=== PATIENT | male | born 1935 | race Caucasian/White ===

== ENCOUNTER 2017-01-07 02:15 | Inpatient (IN) ==
[2017-01-07] MEDS ORDERED: PANTOPRAZOLE 40 MG VIAL IV STA (02:29)
[2017-01-07] MEDS ORDERED: METOCLOPRAMIDE 10 MG/2 ML VIAL IV STA (02:30)
--- NOTE | 2017-01-07 02:34 | Emergency Department Note ---
Arrival - Arrival Chief Complaint: GI Bleed/Rectal ED Nursing Triage Note: Pt arrives from [facility] for further eval of a lower Gi Bleed. Pt was seen initially for a fall and found to have low h&h and + hemmacult. Pt denies having blood in stool but is noted to have dementia. Denies any pain at time of triage. Mode of Arrival: Stretcher Limitations: Altered Mental Status Source: Old Records Reviewed Time Seen by Provider: 01/07/17 02:29 - History of Present Illness HPI Narrative: This 81-year-old white male presents on referral from [place] where he initially presented with multiple abrasions sustained in a fall when he wandered off from his home earlier this evening. The patient has severe dementia and had escaped briefly from his 's line of sight. Subsequent workup apparently revealed patient to be anemic with Hemoccult positive stool. Because of his dementia any cognizant history is unreliable although the patient states he has had explosive diarrhea for several days with abdominal pain that he can poorly described. He currently is oriented only to person and exhibits extreme tangential speech. Currently he appears in no acute medical distress. Of note , the patient was just discharged from [facility] 48 hours ago. Onset (ago): unknown Allergies/Adverse Reactions: Allergies Allergy/AdvReac Type Severity Reaction Status Date / Time No Known Allergies Allergy Verified 12/24/16 17:52 Home Medications: Home Medications Medication Instructions Recorded Confirmed Type Nortriptyline HCl 10 mg PO BEDTIME 10/27/16 01/07/17 History Zaleplon [Sonata] 5 mg PO BEDTIME PRN #30 capsule 11/07/16 01/07/17 Rx Donepezil [Aricept] 10 mg PO BEDTIME #30 tablet 01/05/17 01/07/17 Rx Gabapentin Cap/Tab [Neurontin 100 mg PO TID #90 capsule 01/05/17 01/07/17 Rx Cap/Tab] Levothyroxine Tab [Synthroid Tab] 50 mcg PO DAILY@0700 #30 tablet 01/05/1701/07 Rx Memantine HCl/Donepezil HCl 1 capsule PO BEDTIME #30 01/05/17 01/07/17 Rx [Namzaric 28-10 mg] OLANZapine TAB [ZyPREXA Tab] 2.5 mg PO BID@1600,2100 #60 tablet 01/05/17 Rx Rivaroxaban [Xarelto] 20 mg PO DAILY W/SUPPER #30 tablet 01/05/17 01/07/17 Rx Review of System - Review of System ROS unobtainable: due to mental status Medical,Surgical,& Family Hx - Medical History Cardio: History of: Cardiac Dysrhythmia, Pacemaker Psychological: History of: Anxiety Disorders, Depression No history of: Behavior Problems, Previous Suicide Attempt, Violent Behavior , Psychiatric Problems Neurology: History of: Dementia HEENT: History of: Eye Problem (cataracts) Endocrine: History of: Diabetes Mellitus (NIDDM) Respiratory: History of: Respiratory Problems (SINUS;RUNNY NOSE.) Renal: History of: Renal Problems (URINARY FREQUENCY.) Gastrointestinal: History of: Diverticulitis/ Diverticulosis, Polyps, GI Problems (rectal bleeding) Musculoskeletal: History of: Back/Neck Problems (STATES HAS BACK PAIN. STATED HAD FALL SEVERAL MONTHS AGO.), Musculoskeletal Problems (GAIT VERY UNSTEADY BUT DO NOT USE ANY EQUIPMENT TO AMBULATE.) Hematology: History of: Anemia Other: History of: Skin Problems (DRY SKIN.) - Surgical History Cardiac Surgeries: Sugical HX of: Cardiac Catheterization, Cardiac Surgery ( Pacemaker) Thoracic Surgeries: Patient denies;: Organ Transplant, Lobectomy Neurologic Surgeries: Patient denies: Neurologic Surgery HEENT Surgeries: Surgical HX of: Eye Surgery (Cataracts, bilateral) Abdominal Surgeries: Surgical HX of: Abdominal Surgery, Colonoscopy Reproductive Surgeries: Patient denies;: Genitourinary Surgery Orthopedic Surgeries: Surgical HX of;: Total Knee Replacement (Right Knee) - Family History Family History: Reports;: Family Diabetes, Family Psychiatric Problems (SISTER) - Social History Smoking Status: Never smoker Frequency of Alcohol Use: None Type of Drug Use: None Exam Physical Examination: GENERAL: Well developed, well nourished elderly white male in no acute distress. HEENT: Normocephalic. Small abrasions of the middle of the forehead and nose noted. Moist mucous membranes. EOMI. PERRLA. ENT NML NECK: Supple. No adenopathy. CARDIAC: Regular. No murmurs. Heart rate 110 CHEST: Clear to auscultation. No respiratory distress. O2 sat 100%. Pacemaker noted ABDOMEN: Soft. Nontender. Active bowel sounds. EXTREMITIES: No trauma. Normal ROM. No pedal edema. SKIN: No diaphoresis. No rash. Bilateral small knee abrasions. NEURO: Alert. Oriented to person only. Motor, sensory, vibratory intact. No focal deficits. Vital Signs: Vital Signs Temperature 97.8 F 01/07/17 02:15 Pulse Rate 112 H 01/07/17 02:15 Respiratory Rate 18 01/07/17 02:15 Blood Pressure 108/97 01/07/17 02:15 O2 Sat by Pulse Oximetry 112 H 01/07/17 02:15 Course - Reevaluation(s) Reevaluation #1: Patient is oblivious to the situation. - Consultations Consultation #1: Discussed with hospitalist service who will admit for further evaluation and treatment Results - Labs Labs: Lab per mother reveals white blood count 9700, hematocrit 27.7, sodium 140, potassium 3.9, creatinine 1.6, BUN 31, occult blood positive, urinalysis negative. - Diagnostic Findings Procedure: Chest x-ray: image reviewed by me, report reviewed by me (Pacemaker left chest otherwise negative chest x-ray), CT: image reviewed by me, report reviewed by me (Head per Rodarte no acute injury. Microvascular ischemia and cerebral atrophy noted.) Disposition Clinical Impression: Gastrointestinal hemorrhage, Cardiac pacemaker, Status post right knee replacement Disposition: Still a Patient Time of Disposition: 02:46
[2017-01-07] MEDS ORDERED: PANTOPRAZOLE 40 MG VIAL IV ONE (02:45)
[2017-01-07] MEDS ORDERED: METOCLOPRAMIDE 10 MG/2 ML VIAL ONE (02:45)
[2017-01-07] MEDS ORDERED: ONDANSETRON 4 MG/2 ML VIAL IV PRN (02:58)
[2017-01-07] MEDS ORDERED: ZALEPLON 5 MG CAPSULE PO PRN (03:02)
[2017-01-07 03:11] LABS: Basophils # 0.1 10*3/uL (0.0-0.2); Basophils % 0.6 % (0.0-0.8); Eosinophils # 0.1 10*3/uL (0.0-0.87); Hematocrit 28.5 VOL% (42.0-52.0); Hemoglobin 9.5 GM/DL (14.0-18.0); Immature Granulocytes % 0.5 %; Immature Granulocytes Absolute 0.05 #; Lymphocytes # 1.6 10*3/uL (1.4-4.0); Lymphocytes % 16.6 % (21.2-54.2); Mean Corpuscular HGB Conc 33.3 GM/DL (32-36); Mean Corpuscular Hemoglobin 30 PG (27-34); Mean Corpuscular Volume 89.1 FL (87-102); Mean Platelet Volume 10.3 FL (9.6-12.0); Monocytes # 0.8 10*3/uL (0.11-0.8); Monocytes % 8.2 % (1.7-12.7); Neutrophils # 7.1 10*3/uL (1.4-7.4); Neutrophils % 73.1 % (38.7-73.9); Platelet Count 184 T/CUMM (130-400); Red Cell Distribution Width 14.2 % (9.3-17.3); White Blood Count 9.7 T/CUMM (4-12)
[2017-01-07 03:25] LABS: INR 1.1; PT Patient Result 11.5 SECS; Partial Thromboplastin Time 28.5 SECS (0-40)
[2017-01-07 03:36] LABS: Troponin I Only 0.016 NG/ML (0.00-0.045)
[2017-01-07] MEDS: LEVOTHYROXINE 50 MCG TABLET PO SCH (06:19)
--- NOTE | 2017-01-07 06:32 | EKG Report ---
Stationary ECG Study 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
--- NOTE | 2017-01-07 06:49 | XRay Report ---
XR chest 1V portable Indication: SOB Comparison: Chest x-ray dated July 14, 2016 Technique: Single frontal view of the chest Findings: Cardiac mediastinal silhouette is stable in configuration. Cardiac pacemaker apparatus again noted. Chronic change of the lungs including bibasilar and biapical scarring without focal consolidation, pleural effusion, or pneumothorax. Granulomatous calcifications suggested within the left upper lung. Osseous and surrounding soft tissue structures appear grossly unchanged. IMPRESSION: Stable chest x-ray. PROCEDURE INTERPRETED AT [facility] DEPARTMENT OF RADIOLOGY Final Report Signed by: Dr Liang Jama
[2017-01-07] MEDS: GABAPENTIN 100 MG CAPSULE PO SCH ×3 (08:46→21:56)
[2017-01-07] MEDS: PANTOPRAZOLE 40 MG VIAL IV SCH ×2 (08:46→21:56)
[2017-01-07] MEDS: MEMANTINE 10 MG TABLET PO SCH ×2 (08:46→21:56)
[2017-01-07] MEDS: DILTIAZEM CD 240 MG CAPSULE PO SCH (08:46)
[2017-01-07 09:03] LABS: Osmolality,Calculated 291.8 MOS/KG (273-304)
--- NOTE | 2017-01-07 09:36 | Gastrointestinal Consult Note ---
<Chiquita Villeda - Last Filed: 01/07/17 09:28> Assessment and Plan (1) Heme positive stool Status: Acute Assessment and plan: 01/07-Findings of anemia/melena following fall at home with history of Xarelto use for atrial fibrillation. Hgb 9.5 with baseline noted around 10.3. Continue to monitor HH and transfuse as necessary. Plan for tentative diagnositc EGD tomorrow. Plan and addendum to follow by Dr Preciado. Current Visit: No History of Present Illness Chief complaint: Melena History of present illness: Mr. Gusman is a 81 year old male who presented to the hospital following a fall at home. Pt has severe dementia and cannot provide any history. His is present during visit and is able to provide some information however her recall is limited at this time. Apparently pt was discharged from [facility] on 01/05 and returned home with his who stays with him 23/03. She states yesterday evening she walked out of the room for a minute and when she returned he had wandered off which she states he will do if not constantly supervised. She could not locate him and got in the car to drive the block and see if she could find him. When she returned home there were emergency personnel at her neighbors house due to her had entered their back yard and fell. He was brought in for further evaluation. Upon admission, pt was found to be anemic with heme positive stools. Pt states that she noticed when he got home yesterday he had a black tarry stool that she states she had to help him have with manual disimpaction. She denies him having any reports of pain, nausea, vomiting. Denies any known history of PUD in the past. Denies any weight loss, fever or chills. Pt hemoglobin on admission was noted at 9.5. He is noted on 12/31 to have a hemoglobin of 10.3. He has been seen by Dr Preciado in the past for weight loss however no endoscopy records noted. Pt cannot recall his previous endoscopy at this time. She cannot recall his history of blood transfusion/anemia in the past. He does take Xarelto for history of atrial fibrillation. Home Medications Medication Instructions Recorded Confirmed Type Nortriptyline HCl 10 mg PO BEDTIME 10/27/16 01/07/17 History Zaleplon [Sonata] 5 mg PO BEDTIME PRN #30 capsule 11/07/16 01/07/17 Rx Donepezil [Aricept] 10 mg PO BEDTIME #30 tablet 01/05/17 01/07/17 Rx Gabapentin Cap/Tab [Neurontin 100 mg PO TID #90 capsule 01/05/17 01/07/17 Rx Cap/Tab] Levothyroxine Tab [Synthroid Tab] 50 mcg PO DAILY@0700 #30 tablet 01/05/1701/07 Rx Memantine HCl/Donepezil HCl 1 capsule PO BEDTIME #30 01/05/17 01/07/17 Rx [Namzaric 28-10 mg] OLANZapine TAB [ZyPREXA Tab] 2.5 mg PO BID@1600,2100 #60 tablet 01/05/17 Rx Rivaroxaban [Xarelto] 20 mg PO DAILY W/SUPPER #30 tablet 01/05/17 01/07/17 Rx Allergies Allergy/AdvReac Type Severity Reaction Status Date / Time No Known Allergies Allergy Verified 12/24/16 17:52 Medical,Surgical,& Family Hx - Medical History Cardio: History of: Cardiac Dysrhythmia, Pacemaker Psychological: History of: Anxiety Disorders, Depression No history of: Behavior Problems, Previous Suicide Attempt, Violent Behavior , Psychiatric Problems Neurology: History of: Dementia HEENT: History of: Eye Problem (cataracts) Endocrine: History of: Diabetes Mellitus (NIDDM) Respiratory: History of: Respiratory Problems (SINUS;RUNNY NOSE.) Renal: History of: Renal Problems (URINARY FREQUENCY.) Gastrointestinal: History of: Diverticulitis/ Diverticulosis, Polyps, GI Problems (rectal bleeding) Musculoskeletal: History of: Back/Neck Problems (STATES HAS BACK PAIN. STATED HAD FALL SEVERAL MONTHS AGO.), Musculoskeletal Problems (GAIT VERY UNSTEADY BUT DO NOT USE ANY EQUIPMENT TO AMBULATE.) Hematology: History of: Anemia Other: History of: Skin Problems (DRY SKIN.) - Surgical History Cardiac Surgeries: Sugical HX of: Cardiac Catheterization, Cardiac Surgery ( Pacemaker) Thoracic Surgeries: Patient denies;: Organ Transplant, Lobectomy Neurologic Surgeries: Patient denies: Neurologic Surgery HEENT Surgeries: Surgical HX of: Eye Surgery (Cataracts, bilateral) Abdominal Surgeries: Surgical HX of: Abdominal Surgery, Colonoscopy Reproductive Surgeries: Patient denies;: Genitourinary Surgery Orthopedic Surgeries: Surgical HX of;: Total Knee Replacement (Right Knee) - Family History Family History: Reports;: Family Diabetes, Family Psychiatric Problems (SISTER) - Social History Smoking Status: Never smoker Frequency of Alcohol Use: None Type of Drug Use: None ROS unobtainable: due to mental status Exam - Constitutional Vitals: Period Temp Pulse Resp BP Sys/Guzman Pulse Ox Last 24 Hr 97.3 F-98.8 F 70-149 14-34 70-147/40-88 93-100 General appearance: normal weight, no acute distress - Head Head exam: Present: normal inspection, normocephalic - Eye Eye exam: Present: other (lids and conjunctiva unremarkable). Absent: scleral icterus - ENT ENT exam: Present: normal exam, normal oropharynx - Neck Neck exam: Present: normal inspection - Respiratory Respiratory exam: Present: clear to auscultation bilaterally. Absent: rales, rhonchi, wheezes - Cardiovascular Cardiovascular exam: Present: regular rate and rhythm. Absent: diastolic murmur , JVD, systolic murmur - GI/Abdominal GI/Abdominal exam: Present: normal bowel sounds, soft. Absent: ascites, distended, mass, organomegaly, tenderness - Extremities Exam Extremities exam: Present: normal inspection, full ROM - Back Exam Back exam: Present: normal inspection - Neurological Exam Neurological exam: Present: alert, altered - Psychiatric Psychiatric exam: Present: other - Skin Skin exam: Present: normal color, warm, abrasion (forehead), dry, other ( ecchymosis to forehead) Results - Labs CBC & BMP: 01/07/17 03:00 01/07/17 08:30 Lab Results: I have reviewed the past 24 hour labs <James Preciado - Last Filed: 01/07/17 17:52> History of Present Illness History of present illness: Mr. Gusman is a 81 year old male Exam - Constitutional Vitals: Period Temp Pulse Resp BP Sys/Guzman Pulse Ox Last 24 Hr 97.3 F-99 F 66-149 13-34 70-147/40-88 93-100 Results - Labs CBC & BMP: 01/07/17 08:30 01/07/17 08:30
[2017-01-07 09:37] LABS: Hematocrit 28.9 VOL% (42.0-52.0); Hemoglobin 9.6 GM/DL (14.0-18.0)
--- NOTE | 2017-01-07 14:46 | Hospitalist Progress Note ---
Assessment and Plan (1) Lower GI bleed Status: Acute Assessment and plan: cont protonix, monitor hgb, transfuse for hgb less than 8, hold xarelto Current Visit: No (2) Atrial fibrillation Status: Acute Assessment and plan: rate controlled with po dilt given this morning, hold xarelto due to bleeding Current Visit: No (3) Diabetes Status: Acute Assessment and plan: hemoglobin A1c, ISC Current Visit: No (4) Major neurocognitive disorder, due to Alzheimer's disease, with behavioral disturbance, mild Status: Acute Assessment and plan: Continue Zyprexa, Aricept, Namenda Current Visit: No (5) Anemia Status: Acute Assessment and plan: Monitor hemoglobin and transfuse for hemoglobin less than 8. Possible EGD in a.m. Current Visit: No Hospitalist: Subjective Interval history: Discharged from [facility] recently, wondering off to neighbors yard and falling. Patient has severe to dementia but very pleasant. Patient does not report any bloody stools, but his reports dark tarry stools. Patient on xarelto for atrial fibrillation which now on hold. Has afib with RVR now controlled on po dilt. Moving out of ICU. Exam - Constitutional Vitals: Period Temp Pulse Resp BP Sys/Guzman Pulse Ox Last 24 Hr 97.3 F-99 F 66-149 13-34 70-147/40-88 93-100 Exam: Heart Rate-[IRR and tachy ] Lungs-[clear ] GI-[+bs soft, NT] Ext-[no edema] Neuro [Motor 5/5], [alert and oriented times 1] psych [pleasant mood and affect] General [no acute distress] Results - Labs CBC & BMP: 01/07/17 08:30 01/07/17 08:30 Lab Results: I have reviewed the past 24 hour labs - Diagnostic Findings Procedure: Chest x-ray: report reviewed by me (Rowdy philip)
[2017-01-07] MEDS ORDERED: GLUCAGON 1 MG VIAL IM PRN (15:01)
[2017-01-07] MEDS ORDERED: DEXTROSE 50% 25 GM/50 ML VIAL IV PRN (15:01)
[2017-01-07] MEDS: OLANZapine 5 MG TABLET PO SCH ×2 (17:41→21:55)
[2017-01-07] MEDS: INSULIN LISPRO 100 UNIT/ML SUBCUT SCH ×2 (17:42→21:57)
[2017-01-07 18:15] LABS: Hematocrit 29.2 VOL% (42.0-52.0); Hemoglobin 9.8 GM/DL (14.0-18.0)
[2017-01-07] MEDS: DONEPEZIL 10 MG TABLET PO SCH (21:56)
[2017-01-07] MEDS: NORTRIPTYLINE 10 MG CAPSULE PO SCH (21:56)
[2017-01-08 02:39] LABS: Hematocrit 26.9 VOL% (42.0-52.0); Hemoglobin 8.8 GM/DL (14.0-18.0)
[2017-01-08] MEDS: LEVOTHYROXINE 50 MCG TABLET PO SCH (06:25)
[2017-01-08] MEDS: PANTOPRAZOLE 40 MG VIAL IV SCH ×2 (08:17→22:46)
[2017-01-08] MEDS: GABAPENTIN 100 MG CAPSULE PO SCH ×3 (09:00→22:47)
[2017-01-08] MEDS: INSULIN LISPRO 100 UNIT/ML SUBCUT SCH ×4 (09:24→22:50)
--- NOTE | 2017-01-08 10:43 | History and Physical Update ---
History and Physical Update - Physical Exam Mental Status: other (Dementia) Heart: regular rate and rhythm Lung: clear to auscultation Abdomen: within normal limits Vitals: within normal limits
--- NOTE | 2017-01-08 10:48 | Physician Query Form ---
CLICK EDIT DOCUMENT TO SELECT QUERY ANSWER --> OK --> SIGN Anabelle Gutierrez RN [facility] [employer] W) [phone] (f) [phone] [email or web address] [email or web address]: Make your selection(s) from the choices in EACH section by typing an "x" and enter comments in the comment section. Please use your independent medical judgment in providing your response. This request does not imply that any particular answer is desired or expected. CLINICAL INDICATORS: (Providers should not edit this section) Based on documentation of "Acute anemia" "Acute lower GI hemorrhage" "Heme positive stools" Monitored with serial HH lab checks. Scheduled for EGD. Based on the above, could you clarify which of the following conditions you are evaluating, treating, and/or monitoring? ( x) Blood loss anemia ( x) acute ( ) chronic ( ) acute on chronic ( ) Acute blood loss anemia on baseline chronic anemia ( ) Acute blood loss anemia as a complication of a procedure ( ) Iron deficiency anemia not associated with blood loss ( ) Dilutional anemia due to IV fluids ( ) Hemolytic anemia ( ) immune ( ) non-immune - please specify cause: ( ) Anemia due to other condition, please specify: ( ) Clinically unable to determine COMMENTS: Use of terms such as suspected, likely, or probable (associated with a specific diagnosis that is being evaluated, monitored, or treated as if it exists) are acceptable and can be restated in the discharge summary if not ruled out. MTDD
--- NOTE | 2017-01-08 10:57 | Anesthesia Post-Op ---
Anesthesia Post OP - Post Ansesthetic Evaluation Patient seen in post op: Yes Resp: within normal limits CV: within normal limits Mental: within normal limits Temp: within normal limits [id number]-[id number]: within normal limits Nausea and Vomiting: within normal limits Pain: within normal limits
[2017-01-08] MEDS ORDERED: TUBERCULIN SKIN TEST 0.1 ML SYRINGE INTRADERM ONE (11:00)
--- NOTE | 2017-01-08 11:00 | Operative Note ---
Date of procedure: 01/08/17 Pre-op diagnosis: Melena on chronic anticoagulation Procedure: EGD 81-year-old gentleman with GI blood loss felt to be melenic now for upper endoscopy. He is on Brilinta for atrial fibrillation. Informed consent was obtained He was sedated with MAC anesthesia per anesthesia protocol. Patient placed in left lateral decubitus position the Olympus flexible video upper endoscope is her lower cavity under direct vision the esophagus intubated findings: Esophagus-normal proximal mid esophageal mucosa distal esophagus with moderate hiatal hernia. Distal esophageal stricture is present with no significant esophagitis. Stomach-normal insufflation normal mucosa to direct and retroflexed views of the body, fundus, cardia and antrum the stomach. Pylorus-normal Duodenum-normal for the bulb duodenum to the third portion of the duodenum. No angiodysplasia or active bleeding source was identified. The procedure terminated placed our procedure well his discharge recovery in good condition. Postop diagnosis: 1. Gastroesophageal reflux disease-continue PPI treatment 2. Esophageal stricture dilatation as needed for dysphagia complaints 3. Continue to monitor for signs of active bleeding. Would recommend discontinuation of chronic anticoagulation given his propensity to falls. I would not recommend colonoscopy unless evidence of ongoing active bleeding recurs given the patient's age and his dementia he is a poor operative risk. Anesthesia: MAC Surgeon / Physician: James Preciado Estimated blood loss: none Specimens: none sent Condition: stable Disposition: post procedure unit Results - Labs CBC & BMP: 01/08/17 02:15 01/07/17 08:30 Discharge Plan - Discharge Medications No Action Nortriptyline HCl 10 mg PO BEDTIME Gabapentin Cap/Tab [Neurontin Cap/Tab] 100 mg PO TID #90 capsule Levothyroxine Tab [Synthroid Tab] 50 mcg PO DAILY@0700 #30 tablet OLANZapine TAB [ZyPREXA Tab] 2.5 mg PO BID@1600,2100 #60 tablet Memantine HCl/Donepezil HCl [Namzaric 28-10 mg] 1 capsule PO BEDTIME #30 Zaleplon [Sonata] 5 mg PO BEDTIME PRN #30 capsule PRN Reason: Sleep Donepezil [Aricept] 10 mg PO BEDTIME #30 tablet Rivaroxaban [Xarelto] 20 mg PO DAILY W/SUPPER #30 tablet - Follow Up or Referral - Forms/Instructions
--- NOTE | 2017-01-08 13:31 | Hospitalist Progress Note ---
Assessment and Plan (1) Lower GI bleed Status: Acute Assessment and plan: cont protonix, hgb stable, status post EGD shows GERD, esophageal stricture but no active bleeding Current Visit: No (2) Atrial fibrillation Status: Acute Assessment and plan: Continue po dilt, would not resume Xarelto due to falls and high risk for rebleed Current Visit: No (3) Diabetes Status: Acute Assessment and plan: hemoglobin A1c 6.7, ISC Current Visit: No (4) Major neurocognitive disorder, due to Alzheimer's disease, with behavioral disturbance, mild Status: Acute Assessment and plan: Continue Zyprexa, Aricept, Namenda Current Visit: No (5) Anemia Status: Acute Assessment and plan: Due to Xarelto. Continue to monitor hemoglobin. No blood transfusion required at this point. EGD unremarkable do not plan on doing colonoscopy Current Visit: No Hospitalist: Subjective Interval history: Had conversation with David from case management. [facility] has requested patient to be placed in a detention. We have spoke with his today. She says his daughter is the one initiating office. She will look at several nursing homes in her area. Patient pleasantly confused today. Exam - Constitutional Vitals: Period Temp Pulse Resp BP Sys/Guzman Pulse Ox Last 24 Hr 97.8 F-98.6 F 66-96 13-22 107-133/51-89 94-100 Exam: Heart Rate-[IRR] Lungs-[clear ] GI-[+bs soft, NT] Ext-[no edema] Neuro [Motor 5/5], [pleasantly confused psych [pleasant mood and affect] General [no acute distress] Results - Labs CBC & BMP: 01/08/17 02:15 01/07/17 08:30 Lab Results: I have reviewed the past 24 hour labs
[2017-01-08] MEDS: MEMANTINE 10 MG TABLET PO SCH ×2 (15:35→22:46)
[2017-01-08] MEDS: DILTIAZEM CD 240 MG CAPSULE PO SCH (15:36)
[2017-01-08] MEDS: OLANZapine 5 MG TABLET PO SCH ×2 (15:39→22:46)
[2017-01-08] MEDS: NORTRIPTYLINE 10 MG CAPSULE PO SCH (22:46)
[2017-01-08] MEDS: DONEPEZIL 10 MG TABLET PO SCH (22:47)
[2017-01-09 05:04] LABS: Basophils # 0.1 10*3/uL (0.0-0.2); Eosinophils # 0.3 10*3/uL (0.0-0.87); Eosinophils % 3.9 % (0.00-10.9); Hematocrit 28.8 VOL% (42.0-52.0); Hemoglobin 9.4 GM/DL (14.0-18.0); Immature Granulocytes % 0.2 %; Immature Granulocytes Absolute 0.02 #; Lymphocytes # 1.8 10*3/uL (1.4-4.0); Lymphocytes % 21.3 % (21.2-54.2); Mean Corpuscular HGB Conc 32.6 GM/DL (32-36); Mean Corpuscular Hemoglobin 29 PG (27-34); Mean Corpuscular Volume 88.6 FL (87-102); Mean Platelet Volume 10.3 FL (9.6-12.0); Monocytes # 0.6 10*3/uL (0.11-0.8); Monocytes % 7.7 % (1.7-12.7); Neutrophils # 5.4 10*3/uL (1.4-7.4); Neutrophils % 65.9 % (38.7-73.9); Platelet Count 193 T/CUMM (130-400); Red Blood Count 3.25 MC/CUMM (3.8-5.5); Red Cell Distribution Width 14.2 % (9.3-17.3); White Blood Count 8.2 T/CUMM (4-12)
[2017-01-09] MEDS: LEVOTHYROXINE 50 MCG TABLET PO SCH (06:40)
[2017-01-09] MEDS: MEMANTINE 10 MG TABLET PO SCH ×2 (09:45→21:01)
[2017-01-09] MEDS: DILTIAZEM CD 240 MG CAPSULE PO SCH (09:45)
[2017-01-09] MEDS: GABAPENTIN 100 MG CAPSULE PO SCH ×3 (09:45→21:00)
[2017-01-09] MEDS: INSULIN LISPRO 100 UNIT/ML SUBCUT SCH ×4 (09:46→21:01)
[2017-01-09] MEDS: PANTOPRAZOLE 40 MG VIAL IV SCH ×2 (09:47→21:01)
--- NOTE | 2017-01-09 11:01 | Gastrointestinal Progress Note ---
<Chiquita Villeda - Last Filed: 01/09/17 10:59> Assessment and Plan (1) Heme positive stool Status: Acute Assessment and plan: 01/13-No reports of melena at present time. Hgb stable at 9.4. EGD findings noted. Plan and addendum to follow by Dr Preciado. 01/07-Findings of anemia/melena following fall at home with history of Xarelto use for atrial fibrillation. Hgb 9.5 with baseline noted around 10.3. Continue to monitor HH and transfuse as necessary. Plan for tentative diagnositc EGD tomorrow. Plan and addendum to follow by Dr Preciado. Current Visit: No Gastroenterology - PN: Subj Interval history: CC: MElena Pt is seen awake and alert in room. States he is feeling well today with no complaints of. Denies any abdominal pain. He has been tolerating his diet at present time. There are no reports of melena by nursing staff. Hemoglobin is stable at 9.4. EGD findings noted. Abdomen is soft, nontender. Family is reported to be discussing possible longterm placement at discharge. ROS: Denies SOB or chest pain Exam (Progress Note) - Constitutional Vitals: Period Temp Pulse Resp BP Sys/Guzman Pulse Ox Last 24 Hr 97.1 F-98.4 F 62-76 15-20 92-153/51-76 94-100 General appearance: normal weight, no acute distress - Head Head exam: Present: normal inspection, normocephalic - Eye Eye exam: Present: other (lids and conjunctiva unremarkable). Absent: scleral icterus - ENT ENT exam: Present: normal exam, normal oropharynx - Neck Neck exam: Present: normal inspection - Respiratory Respiratory exam: Present: clear to auscultation bilaterally. Absent: rales, rhonchi, wheezes - Cardiovascular Cardiovascular exam: Present: regular rate and rhythm. Absent: diastolic murmur , JVD, systolic murmur - GI/Abdominal GI/Abdominal exam: Present: normal bowel sounds, soft. Absent: ascites, distended, mass, organomegaly, tenderness - Extremities Exam Extremities exam: Present: normal inspection, full ROM - Back Exam Back exam: Present: normal inspection - Neurological Exam Neurological exam: Present: alert, oriented X3 - Psychiatric Psychiatric exam: Present: normal affect, normal mood - Skin Skin exam: Present: normal color, warm, dry Results - Labs CBC & BMP: 01/09/17 04:42 01/07/17 08:30 Lab Results: I have reviewed the past 24 hour labs <James Preciado - Last Filed: 01/09/17 13:58> Exam (Progress Note) - Constitutional Vitals: Period Temp Pulse Resp BP Sys/Guzman Pulse Ox Last 24 Hr 97.1 F-98.4 F 62-71 16-20 92-153/55-65 94-98 Results - Labs CBC & BMP: 01/09/17 04:42 01/07/17 08:30
--- NOTE | 2017-01-09 11:23 | Case Mgmt Physician Query Form ---
TB Signs and Symptoms Screening ([place]) INSTRUCTIONS: To be completed annually on residents/staff with a significant Tuberculin Skin Test (TST) upon admission/hire or a prior significant TST. To be completed on all staff at hire. Please respond to each listed symptom with an (X) in either the "YES" or "NO" box. Do you currently have any of the following symptoms: YES NO ( ) (x ) A cough If yes, is it: ( ) Productive ( ) Non- productive ( ) (x ) Hemoptysis (spitting up blood) ( ) (x ) Chest pains ( ) ( x) Weight Loss ( ) (x ) Fever ( ) ( x) Night Sweats (x ) ( ) Weakness ( ) (x ) Loss of Appetite ( ) (x ) Difficulty Breathing If you answered YES" to any of the above questions, how long have symptoms been present? Comments: If you have any questions, please contact me. thank you, David Swan RN Case Manager O:[phone] P: [phone] F: [phone] [email or web address]
--- NOTE | 2017-01-09 14:42 | Hospitalist Progress Note ---
Assessment and Plan (1) Lower GI bleed Status: Acute Assessment and plan: cont protonix, hgb stable, status post EGD normal Current Visit: No (2) Atrial fibrillation Status: Acute Assessment and plan: Continue po dilt, would not resume Xarelto due to falls and high risk for rebleed Current Visit: No (3) Diabetes Status: Acute Assessment and plan: hemoglobin A1c 6.7, ISC Current Visit: No (4) Major neurocognitive disorder, due to Alzheimer's disease, with behavioral disturbance, mild Status: Acute Assessment and plan: Continue Zyprexa, Aricept, Namenda Current Visit: No (5) Anemia Status: Acute Assessment and plan: Due to Xarelto. hgb stable Current Visit: No Hospitalist: Subjective Interval history: Patient hemoglobin is stable. Would normally discharge him home today. Week. Awaiting placement. Family is coming in from out of town to help care for him. [facility] wants him placed. is cooperating with this. Hopefully family will arrive so he can be discharged on Thursday. Exam - Constitutional Vitals: Period Temp Pulse Resp BP Sys/Guzman Pulse Ox Last 24 Hr 97.1 F-98.4 F 62-71 16-20 92-153/55-65 94-98 Exam: Heart Rate-[IRR] Lungs-[clear ] GI-[+bs soft, NT] Ext-[no edema] Neuro [Motor 5/5], [pleasantly confused psych [pleasant mood and affect] General [no acute distress] Results - Labs CBC & BMP: 01/09/17 04:42 01/07/17 08:30 Lab Results: I have reviewed the past 24 hour labs
[2017-01-09] MEDS: OLANZapine 5 MG TABLET PO SCH ×2 (17:02→21:02)
[2017-01-09] MEDS: NORTRIPTYLINE 10 MG CAPSULE PO SCH (21:00)
[2017-01-09] MEDS: DONEPEZIL 10 MG TABLET PO SCH (21:01)
[2017-01-10 04:45] LABS: Basophils # 0.1 10*3/uL (0.0-0.2); Basophils % 0.9 % (0.0-0.8); Eosinophils # 0.3 10*3/uL (0.0-0.87); Eosinophils % 4.5 % (0.00-10.9); Hematocrit 25.5 VOL% (42.0-52.0); Hemoglobin 8.4 GM/DL (14.0-18.0); Immature Granulocytes % 0.5 %; Immature Granulocytes Absolute 0.03 #; Lymphocytes # 1.5 10*3/uL (1.4-4.0); Lymphocytes % 22.8 % (21.2-54.2); Mean Corpuscular HGB Conc 32.9 GM/DL (32-36); Mean Corpuscular Hemoglobin 29 PG (27-34); Mean Corpuscular Volume 87.6 FL (87-102); Mean Platelet Volume 10.4 FL (9.6-12.0); Monocytes # 0.4 10*3/uL (0.11-0.8); Monocytes % 6.6 % (1.7-12.7); Neutrophils # 4.3 10*3/uL (1.4-7.4); Neutrophils % 64.7 % (38.7-73.9); Platelet Count 182 T/CUMM (130-400); Red Blood Count 2.91 MC/CUMM (3.8-5.5); Red Cell Distribution Width 14.1 % (9.3-17.3); White Blood Count 6.7 T/CUMM (4-12)
[2017-01-10] MEDS: LEVOTHYROXINE 50 MCG TABLET PO SCH (06:05)
[2017-01-10] MEDS: INSULIN LISPRO 100 UNIT/ML SUBCUT SCH ×4 (07:13→21:35)
[2017-01-10] MEDS: DILTIAZEM CD 240 MG CAPSULE PO SCH (08:08)
[2017-01-10] MEDS: PANTOPRAZOLE 40 MG VIAL IV SCH ×2 (08:08→21:34)
[2017-01-10] MEDS: MEMANTINE 10 MG TABLET PO SCH ×2 (08:08→21:34)
[2017-01-10] MEDS: GABAPENTIN 100 MG CAPSULE PO SCH ×3 (08:08→21:34)
[2017-01-10] MEDS ORDERED: SODIUM CHLORIDE 0.9% 250 ML IV PRN (13:34)
--- NOTE | 2017-01-10 13:36 | Hospitalist Progress Note ---
Assessment and Plan (1) Lower GI bleed Status: Acute Assessment and plan: cont protonix, hgb stable, 1 unit packed red blood cells. Current Visit: No (2) Atrial fibrillation Status: Acute Assessment and plan: Continue po dilt, would not resume Xarelto due to falls and high risk for rebleed Current Visit: No (3) Diabetes Status: Acute Assessment and plan: hemoglobin A1c 6.7, ISC, blood sugar stable Current Visit: No (4) Major neurocognitive disorder, due to Alzheimer's disease, with behavioral disturbance, mild Status: Acute Assessment and plan: Continue Zyprexa, Aricept, Namenda Current Visit: No (5) Anemia Status: Acute Assessment and plan: Due to Xarelto. hgb slightly lower today. 1 unit packed red blood cells per Current Visit: No Hospitalist: Subjective Interval history: Patient up and eating today. Patient looks stable. Hemoglobin is down a little bit. We will give 1 unit today. We will not do any more serial hemoglobins. Will be transferred to senior care for rehab on Thursday Exam - Constitutional Vitals: Period Temp Pulse Resp BP Sys/Guzman Pulse Ox Last 24 Hr 98.1 F-99.4 F 56-95 16-20 115-145/57-74 95-100 Exam: Heart Rate-[IRR] Lungs-[clear ] GI-[+bs soft, NT] Ext-[no edema] Neuro [Motor 5/5], [pleasantly confused psych [pleasant mood and affect] General [no acute distress] Results - Labs CBC & BMP: 01/10/17 04:21 01/07/17 08:30 Lab Results: I have reviewed the past 24 hour labs
[2017-01-10] MEDS: OLANZapine 5 MG TABLET PO SCH ×2 (16:10→21:34)
[2017-01-10 20:03] LABS: Hematocrit 29.3 VOL% (42.0-52.0); Hemoglobin 9.8 GM/DL (14.0-18.0)
[2017-01-10] MEDS: NORTRIPTYLINE 10 MG CAPSULE PO SCH (21:34)
[2017-01-10] MEDS: DONEPEZIL 10 MG TABLET PO SCH (21:34)
[2017-01-11] MEDS: LEVOTHYROXINE 50 MCG TABLET PO SCH (06:15)
[2017-01-11] MEDS: INSULIN LISPRO 100 UNIT/ML SUBCUT SCH ×4 (08:45→21:35)
[2017-01-11] MEDS: GABAPENTIN 100 MG CAPSULE PO SCH ×3 (08:45→21:29)
[2017-01-11] MEDS: DILTIAZEM CD 240 MG CAPSULE PO SCH (08:45)
[2017-01-11] MEDS: MEMANTINE 10 MG TABLET PO SCH ×2 (08:45→21:28)
[2017-01-11] MEDS: PANTOPRAZOLE 40 MG VIAL IV SCH ×2 (08:46→21:29)
--- NOTE | 2017-01-11 10:27 | Discharge Summary ---
Hospital Course - Hospital Course Hospital Course: 81 year old male with a history of Alzheimer's dementia was recently discharged from [facility] and sent home to live with his . Patient wandered off and was found in the neighbor's backyard and had fallen and injured his head. Patient has a history of atrial fib and was on Xarelto. reported patient has been having dark tarry stools. Patient's hemoglobin on admission was 9.5. EGD was performed on January 08, [address] Preciado which showed gastroesophageal reflux disease, esophageal stricture but no evidence of active bleeding. Due to patient's advanced age they did not want to pursue a colonoscopy at this time. Patient has received 1 unit of packed red blood cells and appears stable. [facility] has become involved because the is unable to maintain his safety. [facility] has requested the patient to be placed in a care home. Patient was stable for discharge on Thursday but was not a safe discharge until Thursday. has been informed of [facility] his decision and is been helpful in finding a care home for him. Discharged on Thursday to care home. We do not plan to restart his Xarelto ever due to his fall risk and high risk of rebleed. - Time spent with patient Time with patient DS: Greater than 30 minutes (45 min) Diagnosis - Discharge Diagnosis (1) Lower GI bleed Status: Acute (2) Atrial fibrillation Status: Acute (3) Diabetes Status: Acute (4) Major neurocognitive disorder, due to Alzheimer's disease, with behavioral disturbance, mild Status: Acute (5) Anemia Status: Acute Discharge Plan - Discharge Data Disposition: Disch/Xfer-Ip Rehab Fac Condition at Discharge: Stable Discharge Diet: diabetic diet Activity: resume usual activities as tolerated Hygiene: no restrictions Weight Bearing at Discharge: full weight bearing - Discharge Medications New Diltiazem Cd Cap [Cardizem CD] 240 mg PO DAILY capsule Pantoprazole Tab [Protonix Tab] 40 mg PO BID #60 tablet Insulin Lispro [HumaLOG] See Protocol SUBCUT ACHS unit Continue Nortriptyline HCl 10 mg PO BEDTIME Gabapentin Cap/Tab [Neurontin Cap/Tab] 100 mg PO TID #90 capsule Levothyroxine Tab [Synthroid Tab] 50 mcg PO DAILY@0700 #30 tablet OLANZapine TAB [ZyPREXA Tab] 2.5 mg PO BID@1600,2100 #60 tablet Memantine HCl/Donepezil HCl [Namzaric 28-10 mg] 1 capsule PO BEDTIME #30 Zaleplon [Sonata] 5 mg PO BEDTIME PRN #30 capsule PRN Reason: Sleep Donepezil [Aricept] 10 mg PO BEDTIME #30 tablet Discontinued Rivaroxaban [Xarelto] 20 mg PO DAILY W/SUPPER #30 tablet - Follow Up or Referral - Forms/Instructions Additional Discharge Instructions: discharge in am, when accepted at care home, no need for MD to see Exam - Constitutional Vitals: Period Temp Pulse Resp BP Sys/Guzman Pulse Ox Last 24 Hr 98 F-99.4 F 60-69 16-20 113-145/53-82 97-99 General appearance: normal weight, no acute distress - Respiratory Respiratory exam: Present: clear to auscultation bilaterally. Absent: rhonchi, wheezes - Cardiovascular Cardiovascular exam: Present: regular rate and rhythm. Absent: systolic murmur - GI/Abdominal GI/Abdominal exam: Present: normal bowel sounds, soft. Absent: tenderness - Neurological Exam Neurological exam: Present: alert - Psychiatric Psychiatric exam: Present: normal affect, normal mood Discharge Results Labs on day of discharge: Labs from last 24 hours 01/11/17 01/10/17 01/10/17 07:28 21:00 19:58 Hgb 9.8 L Hct 29.3 L POC Glucose 176 H 217 H Blood Type Antibody Screen Crossmatch 01/10/17 01/10/17 01/10/17 15:34 14:30 11:48 Hgb Hct POC Glucose 106 160 H Blood Type A POSITIVE Antibody Screen Negative Crossmatch See Detail DS: Provider Date of admission: 01/07/17 02:59 Primary care physician: Niall Sena MD Attending physician on admission: Rudy Nguyen MD Consults: 01/07/17 03:05 Consult to Physician [CONS] Routine Comment: gi bleed, seen in past Consulting Provider: James Preciado Consult to Specialist Group: Gastroenterology When should Consulting Provider be notified: In am 01/07/17 05:07 Consult to Dietitian [CONS] Routine Reason for Dietitian: Diet Recommendations 01/07/17 08:21 Consult to Physical Therapy [CONS] Routine Reason for Physical Therapy: Evaluate and Treat 01/08/17 10:27 Consult to Case Mgmt/Social Srvs [CONS] Routine Reason for Case Mgmt/Social Srvs: Swingbed/SNF/Snf 01/08/17 13:30 Consult to Occupational Therapy [CONS] Routine Reason for Occupational Therapy: Evaluate and Treat Discharging clinician: Mayra Pugh MD
[2017-01-11] MEDS: OLANZapine 5 MG TABLET PO SCH ×2 (15:40→21:29)
[2017-01-11] MEDS: DONEPEZIL 10 MG TABLET PO SCH (21:29)
[2017-01-11] MEDS: NORTRIPTYLINE 10 MG CAPSULE PO SCH (21:29)
[2017-01-12] MEDS: LEVOTHYROXINE 50 MCG TABLET PO SCH (06:19)
[2017-01-12] MEDS: DILTIAZEM CD 240 MG CAPSULE PO SCH (09:45)
[2017-01-12] MEDS: MEMANTINE 10 MG TABLET PO SCH (09:46)
[2017-01-12] MEDS: PANTOPRAZOLE 40 MG VIAL IV SCH (09:46)
[2017-01-12] MEDS: GABAPENTIN 100 MG CAPSULE PO SCH (09:46)
[2017-01-12] MEDS: INSULIN LISPRO 100 UNIT/ML SUBCUT SCH ×2 (09:48→13:50)
--- NOTE | 2017-01-12 11:20 | Gastrointestinal Progress Note ---
<Rizwan Villedaher May - Last Filed: 01/12/17 11:18> Assessment and Plan (1) Heme positive stool Status: Acute Assessment and plan: 01/12-No overt bleeding over the weekend. No reports of melena. For discharge to senior living facility today. Plan and addendum to follow by Dr Preciado. 01/10-No reports of melena at present time. Hgb stable at 9.4. EGD findings noted. Plan and addendum to follow by Dr Preciado. 01/07-Findings of anemia/melena following fall at home with history of Xarelto use for atrial fibrillation. Hgb 9.5 with baseline noted around 10.3. Continue to monitor HH and transfuse as necessary. Plan for tentative diagnositc EGD tomorrow. Plan and addendum to follow by Dr Preciado. Gastroenterology - PN: Subj Interval history: CC: Anemia Pt is seen awake and alert ambulating around room with assistance. He has had no reports of overt bleeding over the weekend. He is tolerating his diet with good appetite reported. Denies any abdominal pain. He is for custodial placement today upon discharge. Hemoglobin has not been rechecked over the weekend however last one noted at 9.8. Abdomen is soft, nontender. ROS: Denies SOB or chest pain Exam (Progress Note) - Constitutional Vitals: Period Temp Pulse Resp BP Sys/Guzman Pulse Ox Last 24 Hr 97.1 F-100.1 F 61-98 18-20 114-142/57-77 95-99 General appearance: normal weight, no acute distress - Head Head exam: Present: normal inspection, normocephalic - Eye Eye exam: Present: other (lids and conjunctiva unremarkable). Absent: scleral icterus - ENT ENT exam: Present: normal exam, normal oropharynx - Neck Neck exam: Present: normal inspection - Respiratory Respiratory exam: Present: clear to auscultation bilaterally. Absent: rales, rhonchi, wheezes - Cardiovascular Cardiovascular exam: Present: regular rate and rhythm. Absent: diastolic murmur , JVD, systolic murmur - GI/Abdominal GI/Abdominal exam: Present: normal bowel sounds, soft. Absent: ascites, distended, mass, organomegaly, tenderness - Extremities Exam Extremities exam: Present: normal inspection, full ROM - Back Exam Back exam: Present: normal inspection - Neurological Exam Neurological exam: Present: alert, oriented X3 - Psychiatric Psychiatric exam: Present: normal affect, normal mood - Skin Skin exam: Present: normal color, warm, dry Results - Labs CBC & BMP: 01/10/17 19:58 01/07/17 08:30 Lab Results: I have reviewed the past 24 hour labs <James Preciado - Last Filed: 01/12/17 18:35> Exam (Progress Note) - Constitutional Vitals: Period Temp Pulse Resp BP Sys/Guzman Pulse Ox Last 24 Hr 97.1 F-100.1 F 60-74 16-20 114-142/57-77 96-100 Results - Labs CBC & BMP: 01/10/17 19:58 01/07/17 08:30
[2017-01-12 11:43] VITALS: BP 130/60
== END 2017-01-12 15:04 | DRG 378 ==
LOC: EDUNIT# → EDBD → N.ED 02:15 → SUATTDRO 02:58 → N.EDINP 02:58 → N.CC 03:18 → N.TELEN 15:18 → N.TELES 19:50
PROVIDERS: ADMIT Internal Medicine; ATTEND Internal Medicine

== ENCOUNTER 2018-05-06 11:55 | Inpatient (IN) ==
[2018-05-06 16:24] LABS: Calcium 8.8 MG/DL (8.5-10.1); Osmolality,Calculated 284.4 MOS/KG (273-304); Potassium 4.1 MMOL/L (3.5-5.1)
[2018-05-07 06:06] LABS: Basophils % 0.3 % (0.0-0.8); Eosinophils # 0.2 10*3/uL (0.0-0.87); Hematocrit 31.1 VOL% (42.0-52.0); Hemoglobin 10.6 GM/DL (14.0-18.0); Immature Granulocytes % 0.8 %; Immature Granulocytes Absolute 0.12 #; Lymphocytes # 0.5 10*3/uL (1.4-4.0); Lymphocytes % 3.3 % (21.2-54.2); Mean Corpuscular HGB Conc 34.1 GM/DL (32-36); Mean Corpuscular Hemoglobin 31 PG (27-34); Mean Corpuscular Volume 89.4 FL (87-102); Mean Platelet Volume 9.3 FL (9.6-12.0); Monocytes # 0.4 10*3/uL (0.11-0.8); Monocytes % 2.7 % (1.7-12.7); Neutrophils # 14.4 10*3/uL (1.4-7.4); Neutrophils % 91.9 % (38.7-73.9); Platelet Count 253 T/CUMM (130-400); Red Blood Count 3.48 MC/CUMM (3.8-5.5); Red Cell Distribution Width 13.8 % (9.3-17.3); White Blood Count 15.6 T/CUMM (4-12)
[2018-05-07 06:38] LABS: Calcium 8.6 MG/DL (8.5-10.1); Osmolality,Calculated 284.5 MOS/KG (273-304); Potassium 4.2 MMOL/L (3.5-5.1); Risk Ratio 3.86; Thyroid Stimulating Hormone 1.18 uIU/ml (0.358-3.74); VLDL CHOLESTEROL 19.4 MG/DL
[2018-05-07 07:14] LABS: Band Neutrophils 1 % (0-10); Lymphocytes 1 % (20-55); Platelet Estimate Normal; Segmented Neutrophils 96 % (50-85); Total Cells Counted 100
[2018-05-08 04:51] LABS: Basophils % 0.3 % (0.0-0.8); Eosinophils # 0.3 10*3/uL (0.0-0.87); Eosinophils % 2.1 % (0.00-10.9); Hematocrit 30.4 VOL% (42.0-52.0); Hemoglobin 10.3 GM/DL (14.0-18.0); Immature Granulocytes % 0.8 %; Immature Granulocytes Absolute 0.11 #; Lymphocytes # 0.6 10*3/uL (1.4-4.0); Lymphocytes % 4.9 % (21.2-54.2); Mean Corpuscular HGB Conc 33.9 GM/DL (32-36); Mean Corpuscular Hemoglobin 31 PG (27-34); Mean Corpuscular Volume 90.2 FL (87-102); Mean Platelet Volume 9.9 FL (9.6-12.0); Monocytes # 0.5 10*3/uL (0.11-0.8); Monocytes % 4.2 % (1.7-12.7); Neutrophils # 11.4 10*3/uL (1.4-7.4); Neutrophils % 87.7 % (38.7-73.9); Platelet Count 238 T/CUMM (130-400); Red Blood Count 3.37 MC/CUMM (3.8-5.5)
[2018-05-08 05:35] LABS: Osmolality,Calculated 288.4 MOS/KG (273-304); Potassium 3.9 MMOL/L (3.5-5.1)
[2018-05-08 05:44] LABS: Eosinophils 2 % (0-10); Hypochromasia 1+; Lymphocytes 5 % (20-55); Microcytosis Slight; Ovalocytes Slight; Segmented Neutrophils 90 % (50-85); Total Cells Counted 100
[2018-05-08 11:04] LABS: Amorphous Crystals,Urine Occasional /HPF (Few); Apearance,Urine CLOUDY (Clear); Bacteria,Urine Occasional /HPF (Few); Bilirubin,Urine Negative (Negative); Blood, Urine Large mg/dL (Negative); Glucose,Urine (UA) Negative (Negative); Ketones,Urine 5 mg/dL (Negative); Nitrite,Urine Negative (Negative); Protein,Urine 100 MG/DL; RBC,Urine 699 /HPF (0-4); Squamous Epithelial Cell,Urine Occasional /HPF (0-10); Urine Specific Gravity 1.033 (1.001-1.035); Urine Urobilinogen < 2.0 EU/DL (0.2-1.0); WBC,Urine 70 /HPF (0-6)
[2018-05-08 11:05] LABS: Urine Color Dark Yellow (Yellow)
[2018-05-09 05:41] LABS: Basophils % 0.4 % (0.0-0.8); Calcium 8.3 MG/DL (8.5-10.1); Eosinophils # 0.2 10*3/uL (0.0-0.87); Hemoglobin 8.8 GM/DL (14.0-18.0); Immature Granulocytes % 0.6 %; Immature Granulocytes Absolute 0.05 #; Lymphocytes # 0.6 10*3/uL (1.4-4.0); Lymphocytes % 7.6 % (21.2-54.2); Mean Corpuscular HGB Conc 33.8 GM/DL (32-36); Mean Corpuscular Hemoglobin 30 PG (27-34); Mean Corpuscular Volume 89.7 FL (87-102); Mean Platelet Volume 10.4 FL (9.6-12.0); Monocytes # 0.6 10*3/uL (0.11-0.8); Monocytes % 7.4 % (1.7-12.7); Neutrophils # 6.9 10*3/uL (1.4-7.4); Platelet Count 199 T/CUMM (130-400); Potassium 4.4 MMOL/L (3.5-5.1); Red Cell Distribution Width 14.3 % (9.3-17.3); White Blood Count 8.4 T/CUMM (4-12)
[2018-05-10 05:57] LABS: Basophils # 0.1 10*3/uL (0.0-0.2); Basophils % 0.7 % (0.0-0.8); Eosinophils # 0.4 10*3/uL (0.0-0.87); Eosinophils % 5.4 % (0.00-10.9); Hemoglobin 8.2 GM/DL (14.0-18.0); Immature Granulocytes % 0.7 %; Immature Granulocytes Absolute 0.05 #; Lymphocytes # 0.8 10*3/uL (1.4-4.0); Lymphocytes % 11.5 % (21.2-54.2); Mean Corpuscular HGB Conc 32.8 GM/DL (32-36); Mean Corpuscular Hemoglobin 30 PG (27-34); Mean Corpuscular Volume 92.3 FL (87-102); Mean Platelet Volume 10.4 FL (9.6-12.0); Monocytes # 0.6 10*3/uL (0.11-0.8); Monocytes % 7.8 % (1.7-12.7); Neutrophils # 5.4 10*3/uL (1.4-7.4); Neutrophils % 73.9 % (38.7-73.9); Platelet Count 212 T/CUMM (130-400); Red Blood Count 2.71 MC/CUMM (3.8-5.5); Red Cell Distribution Width 14.4 % (9.3-17.3); White Blood Count 7.3 T/CUMM (4-12)
[2018-05-10 06:20] LABS: Calcium 8.4 MG/DL (8.5-10.1); Osmolality,Calculated 306.4 MOS/KG (273-304); Potassium 3.7 MMOL/L (3.5-5.1)
[2018-05-10 12:59] VITALS: BP 95/55
== END 2018-05-10 13:50 | DRG 469 ==
LOC: N.ADMINP 14:01 → SUATTDRO 14:01 → N.3E 17:15
PROVIDERS: ADMIT Internal Medicine; ATTEND Internal Medicine

== ENCOUNTER 2018-05-25 08:20 | Inpatient (IN) ==
[2018-05-25 08:58] LABS: Basophils # 0.1 10*3/uL (0.0-0.2); Basophils % 1.1 % (0.0-0.8); Eosinophils # 0.3 10*3/uL (0.0-0.87); Eosinophils % 2.8 % (0.00-10.9); Hematocrit 31.5 VOL% (42.0-52.0); Hemoglobin 10.5 GM/DL (14.0-18.0); Immature Granulocytes % 0.6 %; Immature Granulocytes Absolute 0.05 #; Lymphocytes # 1.2 10*3/uL (1.4-4.0); Lymphocytes % 13.6 % (21.2-54.2); Mean Corpuscular HGB Conc 33.3 GM/DL (32-36); Mean Corpuscular Hemoglobin 30 PG (27-34); Mean Corpuscular Volume 90.3 FL (87-102); Mean Platelet Volume 9.5 FL (9.6-12.0); Monocytes # 0.6 10*3/uL (0.11-0.8); Monocytes % 7.1 % (1.7-12.7); Neutrophils # 6.7 10*3/uL (1.4-7.4); Neutrophils % 74.8 % (38.7-73.9); Platelet Count 238 T/CUMM (130-400); Red Blood Count 3.49 MC/CUMM (3.8-5.5); Red Cell Distribution Width 14.5 % (9.3-17.3)
[2018-05-25 09:14] LABS: INR 1.1; PT Patient Result 11.1 SECS; Partial Thromboplastin Time 30.8 SECS (0-40)
[2018-05-25 09:31] LABS: Calcium 8.6 MG/DL (8.5-10.1); Osmolality,Calculated 283.5 MOS/KG (273-304); Potassium 4.1 MMOL/L (3.5-5.1)
[2018-05-25] MEDS ORDERED: ceFAZolin 2,000 MG in PREMIX 1 EACH IV ONE (10:14)
[2018-05-25] MEDS ORDERED: LACTATED RINGERS 1,000 ML IV SCH ×2 (10:30→13:00)
[2018-05-25] MEDS ORDERED: GENTAMICIN INJ 240 MG in SODIUM CHLORIDE 0.9% 100 ML IV SCH (10:30)
[2018-05-25] MEDS ORDERED: BACITRACIN OINT 0.9 GM PACK TOP ONE (12:25)
[2018-05-25] MEDS ORDERED: oxyCODONE IR 5 MG TABLET PO PRN (12:48)
[2018-05-25] MEDS ORDERED: KETOROLAC 15 MG/1 ML VIAL IV PRN (12:49)
[2018-05-25] MEDS ORDERED: MAGNESIUM HYDROXIDE SUSP 30 ML UDCUP PO PRN (12:49)
[2018-05-25] MEDS ORDERED: fentaNYL 100 MCG/2 ML VIAL ONE (13:08)
[2018-05-25] MEDS ORDERED: PROPOFOL 200 MG/20 ML VIAL IV ONE (13:08)
[2018-05-25] MEDS ORDERED: SEVOFLURANE 1 UNIT/15 MINUTE INH ONE (13:08)
[2018-05-25] MEDS ORDERED: LIDOCAINE 1% 5 ML VIAL ONE (13:08)
[2018-05-25] MEDS ORDERED: ePHEDrine 50 MG/ML AMP ONE (13:08)
[2018-05-25] MEDS ORDERED: MEPERIDINE 25 MG/1 ML VIAL ONE (13:17)
[2018-05-25] MEDS ORDERED: ONDANSETRON 4 MG/2 ML VIAL ONE (13:17)
[2018-05-25] MEDS: MEPERIDINE 25 MG/1 ML VIAL IV PRN ×2 (13:20→13:40)
[2018-05-25] MEDS ORDERED: PROMETHAZINE INJ 25 MG in SODIUM CHLORIDE 0.9% 50 ML IV PRN (13:28)
[2018-05-25] MEDS ORDERED: diphenhydrAMINE 50 MG/1 ML VIAL IV PRN (13:28)
[2018-05-25] MEDS ORDERED: ONDANSETRON 4 MG/2 ML VIAL IV PRN (13:28)
[2018-05-25] MEDS ORDERED: MORPHINE 10 MG/1 ML VIAL IV PRN (13:28)
[2018-05-25] MEDS: traZODone 50 MG TABLET PO SCH ×2 (17:41→21:12)
[2018-05-25] MEDS: ceFAZolin 2,000 MG in PREMIX 1 EACH IV SCH (17:41)
[2018-05-25] MEDS: ACETAMINOPHEN 500 MG TABLET PO SCH ×2 (17:41→23:01)
[2018-05-25] MEDS ORDERED: GLUCAGON 1 MG VIAL IM PRN (17:43)
[2018-05-25] MEDS ORDERED: DEXTROSE 50% 25 GM/50 ML VIAL IV PRN (17:43)
[2018-05-25] MEDS: INSULIN LISPRO 100 UNIT/ML SUBCUT SCH (20:59)
[2018-05-25] MEDS ORDERED: traZODone 50 MG TABLET PO SCH (21:00)
[2018-05-25] MEDS: DONEPEZIL 10 MG TABLET PO SCH (21:11)
[2018-05-25] MEDS: METOPROLOL TARTRATE 25 MG TABLET PO SCH (21:11)
[2018-05-25] MEDS: MELATONIN 3 MG TABLET PO SCH (21:11)
[2018-05-25] MEDS: DOCUSATE SODIUM 100 MG CAPSULE PO SCH ×2 (21:12→21:16)
[2018-05-25] MEDS: APIXABAN 2.5 MG TABLET PO SCH (21:12)
[2018-05-26] MEDS: ceFAZolin 2,000 MG in PREMIX 1 EACH IV SCH ×3 (02:46→21:00)
[2018-05-26] MEDS: ACETAMINOPHEN 500 MG TABLET PO SCH ×2 (05:06→13:10)
[2018-05-26 06:29] LABS: Basophils # 0.1 10*3/uL (0.0-0.2); Basophils % 1.1 % (0.0-0.8); Eosinophils # 0.2 10*3/uL (0.0-0.87); Hematocrit 27.2 VOL% (42.0-52.0); Immature Granulocytes % 0.5 %; Immature Granulocytes Absolute 0.03 #; Lymphocytes # 1.1 10*3/uL (1.4-4.0); Lymphocytes % 19.1 % (21.2-54.2); Mean Corpuscular HGB Conc 33.1 GM/DL (32-36); Mean Corpuscular Hemoglobin 30 PG (27-34); Mean Corpuscular Volume 91.6 FL (87-102); Monocytes # 0.5 10*3/uL (0.11-0.8); Monocytes % 8.7 % (1.7-12.7); Neutrophils # 3.7 10*3/uL (1.4-7.4); Neutrophils % 66.6 % (38.7-73.9); Platelet Count 206 T/CUMM (130-400); Red Blood Count 2.97 MC/CUMM (3.8-5.5); Red Cell Distribution Width 14.5 % (9.3-17.3); White Blood Count 5.5 T/CUMM (4-12)
[2018-05-26] MEDS: LEVOTHYROXINE 50 MCG TABLET PO SCH (06:38)
[2018-05-26 06:53] LABS: Calcium 7.7 MG/DL (8.5-10.1); Osmolality,Calculated 282.3 MOS/KG (273-304); Potassium 3.9 MMOL/L (3.5-5.1)
[2018-05-26] MEDS ORDERED: CETIRIZINE 10 MG TABLET PO SCH (09:00)
[2018-05-26] MEDS: INSULIN LISPRO 100 UNIT/ML SUBCUT SCH ×4 (10:04→20:43)
[2018-05-26] MEDS ORDERED: ACETAMINOPHEN 500 MG TABLET ONE (12:38)
[2018-05-26] MEDS: METOPROLOL TARTRATE 25 MG TABLET PO SCH ×2 (13:10→21:01)
[2018-05-26] MEDS: DOCUSATE SODIUM 100 MG CAPSULE PO SCH ×2 (13:10→21:01)
[2018-05-26] MEDS: APIXABAN 2.5 MG TABLET PO SCH ×2 (13:10→21:01)
[2018-05-26] MEDS: MEMANTINE 10 MG TABLET PO SCH ×2 (13:10→21:01)
[2018-05-26] MEDS: GENTAMICIN INJ 240 MG in SODIUM CHLORIDE 0.9% 100 ML IV SCH (13:24)
[2018-05-26] MEDS: traZODone 50 MG TABLET PO SCH ×2 (18:01→21:01)
[2018-05-26] MEDS: DONEPEZIL 10 MG TABLET PO SCH (21:00)
[2018-05-26] MEDS: MELATONIN 3 MG TABLET PO SCH (21:00)
[2018-05-26] MEDS ORDERED: traZODone 50 MG TABLET PO SCH (21:00)
[2018-05-26] MEDS ORDERED: risperiDONE 1 MG TABLET PO SCH (21:00)
[2018-05-27] MEDS: ceFAZolin 2,000 MG in PREMIX 1 EACH IV SCH ×2 (02:52→14:51)
[2018-05-27] MEDS: INSULIN LISPRO 100 UNIT/ML SUBCUT SCH ×2 (08:04→13:42)
[2018-05-27] MEDS ORDERED: CIPROFLOXACIN 500 MG TABLET PO SCH (10:00)
[2018-05-27] MEDS ORDERED: ZINC OXIDE PASTE 113 GM TUBE TOP SCH (11:30)
[2018-05-27] MEDS: GENTAMICIN INJ 240 MG in SODIUM CHLORIDE 0.9% 100 ML IV SCH (13:57)
[2018-05-27] MEDS: traZODone 50 MG TABLET PO SCH (13:57)
[2018-05-27] MEDS: METOPROLOL TARTRATE 25 MG TABLET PO SCH (13:58)
[2018-05-27] MEDS: LEVOTHYROXINE 50 MCG TABLET PO SCH (13:58)
[2018-05-27] MEDS: MEMANTINE 10 MG TABLET PO SCH (13:58)
[2018-05-27] MEDS: DOCUSATE SODIUM 100 MG CAPSULE PO SCH (13:58)
[2018-05-27] MEDS: APIXABAN 2.5 MG TABLET PO SCH (13:58)
[2018-05-27 16:28] VITALS: BP 153/57
== END 2018-05-27 17:53 | DRG 902 ==
LOC: N.OR 08:20 → N.SDSINP 08:33 → N.3E 14:52
PROVIDERS: ADMIT Orthopaedic Surgery; ATTEND Orthopaedic Surgery